=== PATIENT | female | born 1990 | race Caucasian/White ===

== ENCOUNTER 2022-07-18 09:50 | Outpatient (CLI) | payer BC, SELFPAY | END 2022-07-18 09:51 | disposition home or self-care (01) | PROVIDERS: PCP Physician Assistant; Visit Provider Nurse Practitioner Family | DX: I10 Essential (primary) hypertension (principal); Z13.6 Encounter for screening for cardiovascular disorders | CPT/HCPCS: 80053; 80061 ==

== ENCOUNTER 2023-08-07 18:13 | Outpatient (CLI) | payer BC, SELFPAY ==
--- OUTSIDE RECORDS SUMMARY | 2023-08-07 08:46 | XMS_ITS | Clinical Summary ---
Author Organization [facility] Address [address] [place] [address] Care Team Providers Care Leadership Intern Name Role Phone Unavailable Primary Care Provider Unavailabl e Source Comments Patient records contain information from all sites at [facility]. For routine questions regarding patient records, call [phone] during business hours, M-F 8:00 AM - 5:00 PM Central Time. Record requests for emergency care only can be directed to [phone] at any time.[facility] Allergies No known active allergies Medications Medication Sig Dispensed Refills Start Date End Date Status hydroCHLOROthiazide (MICROZIDE) 12.5 mg capsule Take 12.5 mg by mouth every morning. 01/23/2023 Active diphenhydramine-lidoca ine 2 %-antacid (mw)Indications:Pharyn gitis Acute Take 5-10 mL by mouth every 6 (six) hours as needed (mouth pain). Hold in mouth/gargle for a few minutes then spit out. 240 mL 1 02/01/2023 Active Active Problems No known active problems Social History Tobacco Use Types Packs/Day Years Used Date Smoking Tobacco: Never Assessed Nutrition Answer Date Recorded Nutrition: EVOO Fat Source Unknown 02/01 Nutrition: Servings of Fruits/Vegetables per Day Not on file 02/01/2023 Dental Answer Date Recorded Dental: Regular Dentist Unknown 02/02/20 23 Sex and Gender Information Value Date Recorded Sex Assigned at Not on file Gender Identity Not on file Sexual Orientation Not on file Last Filed Vital Signs Vital Sign Reading Time Taken Comments Blood Pressure 129/85 02/01/2023 8:35 AM CHEMIST PHYSICAL Pulse 94 02/01/2023 8:35 AM CHEMIST PHYSICAL Temperature 36.7 ??C (98.1 ??F) 02/01/2023 8:35 AM CS T Respiratory Rate - - Oxygen Saturation 98% 02/01/2023 8:35 AM CHEMIST PHYSICAL Inhaled Oxygen Concentration - - Weight 93.7 kg (206 lb 8 oz) 02/01/2023 8:35 AM CHEMIST PHYSICAL Height - - Body Mass Index - - Plan of Treatment Health Maintenance Due Date Last Done Comments Cervical Cancer Screening 1989 HIV Screening 1989 Hepatitis C Screening 1989 Hepatitis B Vaccines (1 of 3 - 19+ 3-dose series) 2008 COVID-19 Vaccine ( - 2022-2 4 season) 2022 Influenza Vaccine (#1) 2022 Depression Screening (Annual PHQ-2) 02/17/2023 DTaP,Tdap,and Td Vaccines (2 - Td or Tdap) 07/16/2032 07/16/2022 HPV Vaccines Aged Out No longer eligi ble based on patient's age to complete this topic Pneumococcal vaccine (0-64 years) Aged Out No longer eligible based on patient's age to complete this topic [address] [place] [address]
--- OUTSIDE RECORDS SUMMARY | 2023-08-07 08:46 | XMS_ITS | Referral Summary ---
Author Organization [facility] Address [address] [place] [address] Care Team Providers Care Dye House Hand Name Role Phone Unavailable Primary Care Provider Unavailabl e Source Comments Patient records contain information from all sites at [facility]. For routine questions regarding patient records, call [phone] during business hours, M-F 8:00 AM - 5:00 PM Central Time. Record requests for emergency care only can be directed to [phone] at any time.[facility] Allergies No known active allergies Medications Medication [...] Comments Blood Pressure 129/85 02/01/2023 8:35 AM TITLE I ASSISTANT Pulse 94 02/01/2023 8:35 AM TITLE I ASSISTANT Temperature 36.7 ??C (98.1 ??F) 02/01/2023 8:35 AM CS T Respiratory Rate - - Oxygen Saturation 98% 02/01/2023 8:35 AM TITLE I ASSISTANT Inhaled Oxygen Concentration - - Weight 93.7 kg (206 lb 8 oz) 02/01/2023 8:35 AM TITLE I ASSISTANT Height - - Body Mass Index - - Plan of Treatment Not on file [address] [place] [address]
--- OUTSIDE RECORDS SUMMARY | 2023-08-07 08:47 | XMS_ITS | Encounter Summary ---
Author Organization [facility] Address [address] [facility] [place] [address] Care Team Providers Care Body Service Team Member Name Role Phone No Ref-Primary, Physician Primary Care Provider Flower Duke MD Unavailable [phone] Flower Duke MD Unavailable [phone] Encounter Details Date Type Department Care Team (Late st Contact Info) Description 10/28/2016 Medical Correspondence [facility] [id number] [place] [id number] Mary Funk Ra, PAPER LATCHER SENIOR GENETIC COUNSELOR [address] [place] [address] Social History Tobacco Use Types Packs/Day Years Used Date Smoking Tobacco: Some Days Cigarettes Comments:1/2 to 1 ppd Alcohol Use Standard Drinks/Week Comments Yes 0 (1 standard drink = 0.6 oz pure alcohol) Once a week drinks more when goes out Sex and Gender Information Value Date Recorded Sex Assigned at Not on file Gender Identity Not on file Sexual Orientation Not on file documented as of this encounter Plan of Treatment Not on file documented as of this encounter Visit Diagnoses Not on filedocumented in this encounter Care Teams Body Service Team Member Relationship Specialty Start Date End Date No Ref-Primary, Physician PCP - General 01/24/13 Flower Duke MD [address] [facility] [address] [place] [address] PCP - Assigned PCP 08/11/16 04/21/18 Flower Duke MD [address] [facility] [address] [place], [place] [id number] Assigned PCP 08/11/16 08/07/19 documented as of this encounter
--- OUTSIDE RECORDS SUMMARY | 2023-08-07 08:47 | XMS_ITS | Clinical Summary ---
Author Organization [facility] Address [address] [facility] [place] [address] Care Team Providers Care Shopfitter Name Role Phone No Ref-Primary, Physician Primary Care Provider Allergies No known active allergies Medications Medication Sig Dispensed Refills Start Date End Date Status meclizine (ANTIVERT) 12.5 MG tablet Take 1 tablet (12.5 mg) by mouth 4 times daily as needed for dizziness (1-2 tablets) 30 tablet 0 07/27/2015 Active Additional Information Patient not taking.Reported on 04/09/2017 nortriptyline (PAMELOR) 10 MG capsule 2 09/01/2016 Active SUMAtriptan (IMITREX) 100 MG tablet Take 1 tablet (100 mg) by mouth at onset of headache for migraine May repeat in 2 hours. Max 2 tablets/24 hours. 18 tablet 1 10/28/2016 Active Active Problems Problem Noted Date Diagnosed Date CARDIOVASCULAR SCREENING; LDL GOAL LESS THAN 160 02/14/2014 Family History Medical History Relation Comments Family History Negative Father Hypertension Father Family History Negative Maternal Grandfather Family History Negative Maternal Grandmother Breast Cancer Mother Diabetes Paternal Grandfather Family History Negative Paternal Grandfather Family History Negative Paternal Grandmother Depression Sister Relation Status Comments Brother 1 Alive Brother 2 Alive Father Alive Maternal Grandfather Alive Maternal Grandmother Alive Mother Alive Paternal Grandfather (Age 58) Paternal Grandmother Alive Sister Alive Social History Tobacco Use Types Packs/Day Years Used Date Smoking Tobacco: Some Days Cigarettes Smokeless Tobacco: Never Comments:1/2 to 1 ppd Alcohol Use Standard Drinks/Week Comments Yes 0 (1 standard drink = 0.6 oz pure alcohol) Once a week drinks more when goes out PHQ-2 Answer Date Recorded PHQ-2 Score 0 02/25/2018 Sex and Gender Information Value Date Recorded Sex Assigned at Not on file Gender Identity Not on file Sexual Orientation Not on file Last Filed Vital Signs Vital Sign Reading Time Taken Comments Blood Pressure 135/91 07/04/2018 8:00 AM CDT Pulse 83 07/04/2018 8:00 AM CDT Temperature 36.7 ??C (98 ??F) 07/04/2018 7:05 AM CDT Respiratory Rate 16 07/04/2018 8:27 AM CDT Oxygen Saturation 96% 07/04/2018 8:00 AM CDT Inhaled Oxygen Concentration - - Weight 87.8 kg (193 lb 9 oz) 07/04/2018 7:05 AM CDT Height 160 cm (5' 3) 04/09/2017 7:39 PM PROPERTY APPRAISER Body Mass Index 34.29 04/09/2017 7:39 PM PROPERTY APPRAISER Plan of Treatment Not on file Care Teams Shopfitter Relationship Specialty Start Date End Date No Ref-Primary, Physician PCP - General 01/24/13
--- OUTSIDE RECORDS SUMMARY | 2023-08-07 08:47 | XMS_ITS | Referral Summary ---
Author Organization [facility] Address [address] [facility] [place] [address] Care Team Providers Care Associate Designer Name Role Phone No Ref-Primary, Physician Primary [...] SCREENING; LDL GOAL LESS THAN 160 02/14/2014 Social History Tobacco Use Types Packs/Day Years [...] 160 cm (5' 3) 04/09/2017 7:39 PM DECK BUILDER Body Mass Index 34.29 04/09/2017 7:39 PM DECK BUILDER Plan of Treatment Not on file Care Teams Associate Designer Relationship Specialty Start Date End Date No Ref-Primary, Physician PCP - General 01/24/13
--- OUTSIDE RECORDS SUMMARY | 2023-08-07 08:47 | XMS_ITS ---
Author Organization [facility] Address [address] [place] [address] Care Team Providers Care Psychology Physician Name Role Phone Unavailable Unavailable Unavailable Surgery Details Not on file Complications Check Surgery Details section. Procedure Estimated Blood Loss Check Surgery Details section. Procedure Findings Check Surgery Details section. Procedure Specimens Taken Check Surgery Details section.
== END 2023-08-07 18:14 | disposition home or self-care (01) ==
PROVIDERS: PCP Registered Nurse; Visit Provider Registered Nurse
DX: Z00.00 Encounter for general adult medical examination without abnormal findings (principal); E78.00 Pure hypercholesterolemia, unspecified; I10 Essential (primary) hypertension
CPT/HCPCS: 80061

== ENCOUNTER 2024-05-31 15:12 | Emergency (ER) | payer BC, SELFPAY ==
--- OUTSIDE RECORDS SUMMARY | 2024-05-31 15:15 | XMS_ITS | Clinical Summary ---
Author Organization [facility] Address [address] [place] [address] Care Team Providers Care Economic Historian Name Role Phone Unavailable Primary Care Provider Unavailabl e Source Comments Patient records contain information from all sites at [facility]. For routine questions regarding patient records, call [phone] during business hours, M-F 8:00 AM - 5:00 PM Central Time. Record requests for emergency care only can be directed to [phone] at any time.[facility] Allergies No known active allergies Medications hydroCHLOROthia zide (MICROZIDE) 12.5 mg capsule Take 12.5 mg by mouth every morning. 01/23/2023 Active diphenhydramine -lidocaine 2 %-antacid (mw)Indications :Pharyngitis Acute Take 5-10 mL by mouth every 6 (six) hours as needed (mouth pain). Hold in mouth/gargle for a few minutes then spit out. 240 mL 1 02/01/2023 Active Active Problems No known active problems Social History Tobacco Use Types Packs/Day Years Used Date Smoking Tobacco: Never Assessed Dental Answer Date Recorded Dental: Regular Dentist Unknown 02/02/20 23 Comments Unknown Sex and Gender Information Value Date Recorded Sex Assigned at Not on file Legal Sex Female 8:04 AM ROOF PROMENADE TILE SETTER Gender Identity Not on file Sexual Orientation Not on file Last Filed Vital Signs Vital Sign Reading Time Taken Comments Blood Pressure 129/85 02/01/2023 8:35 AM ROOF PROMENADE TILE SETTER Pulse 94 02/01/2023 8:35 AM ROOF PROMENADE TILE SETTER Temperature 36.7 C (98.1 F) 02/01/2023 8:35 AM ROOF PROMENADE TILE SETTER Respiratory Rate - - Oxygen Saturation 98% 02/01/2023 8:35 AM ROOF PROMENADE TILE SETTER Inhaled Oxygen Concentration - - Weight 93.7 kg (206 lb 8 oz) 02/01/2023 8:35 AM ROOF PROMENADE TILE SETTER Height - - Body Mass Index - - Plan of Treatment Health Maintenance Due Date Last Done Comments Cervical/Vaginal Cancer Screening 1989 HIV Screening 1989 Hepatitis C Screening 1989 Lipid (Cholesterol) Screening 1989 Hepatitis B Vaccines (1 of 3 - 19+ 3-dose series) 2008 COVID-19 Vaccine ( - 2023-2 5 season) 2023 Influenza Vaccine (#1) 2023 Depression Screening (Annual PHQ-2) 02/18/2024 DTaP,Tdap,and Td Vaccines (2 - Td or Tdap) 07/16/2032 07/16/2022 HPV Vaccines Aged Out No longer eligi ble based on patient's age to complete this topic IPV Vaccines Aged Out No longer eligi ble based on patient's age to complete this topic Pneumococcal vaccine (0-49 years) Aged Out No longer eligible based on patient's age to complete this topic Insurance [address] [place] [address] [facility]
[2024-05-31 15:31] VITALS: BP 155/108; PULSE 78; RESP 18; TEMP 37.6; O2SAT 97; BMI 32.8
--- NOTE | 2024-05-31 16:11 | ED.HA ---
HPI - Headache General Date Seen: 05/31/24 Chief Complaint: Headache/Migraine Stated Complaint: Migrane Time Seen by Provider: 05/31/24 16:05 History of Present Illness HPI Narrative: Pleasant 34-year-old female with a history of migraine headaches, anxiety, melanoma, hypertension, presenting to the ER today for headache. She is here with her who is supportively at her side. She reports that she had headache that actually started Friday morning and then got worse Friday afternoon so she had to go home early from work. That headache was not abrupt in onset or maximal in intensity at outside but did steadily worsened throughout the afternoon. She tried all of her normal interventions for headache including drinking Mountain Dew, and juhx-toh-yugddwy pain medications. It felt little bit better on Friday. She was awoken from sleep on Friday at about morning with severe bilateral tinnitus that lasted about 30 seconds, ?like a train was still in my head) and with that onset of a severe thunderclap type headache that also lasted about 30 seconds. Both of those symptoms came and went and she was essentially back to normal yesterday on Friday. Today her headache is come back again. Yesterday the headache was mostly in the right temporal region, today more it is in the left. Is not spreading across both sides. It is associated with photophobia. She has no new blurry vision or double vision. However she notes that she does have chronic trouble with her eye striking apparently that causes double vision when she is driving in her car. She has had that visual problem for years and has been doing ?I therapy? for. She does not have a fever. Mild pain from her head down into her neck but no neck stiffness. No recent head injury. No known carbon monoxide exposure. She is here with her they live in the same house and he has no symptoms similar to hers. No rash. No sore throat. No earache. Related Data Previous Rx's ?Medication ?Instructions ?Recorded hydrochlorothiazide 12.5 mg capsule 12.5 mg PO QAM #90 caps 08/07/23 Allergies Allergy/AdvReac Type Severity Reaction Status Date / Time No Known Allergies Allergy Unknown Unknown Verified 05/31/24 17:38 [facility] Surgical History H/O local excision of skin lesion ?Z98.890 - Other specified postprocedural states (ICD-10) Family History Mother Breast cancer Father High blood pressure Sister FH: mental illness Social History Narrative: Works in [employer]. Completed college. What is your current living situation?: I presently have a place to live Problems where you live: declined to answer In the past 12 months, utilities in danger of being shut off: no In past 12 months, lack of transportation kept you from medical appts, meetings, work, or getting things needed for daily living: no In the past 12 mos, have been you worried that your food would run out before you had money to buy more?: never true In the past 12 mos, the food you bought just didn't last and you didn't have money to buy more?: never true Smoking Status: Current every day smoker What tobacco products do you use: cigarettes How often do you have a drink containing alcohol: monthly or less How many standard drinks containing alcohol do you have on a typical day: 1 or 2 AUDIT-C Alcohol total score: 1 Non-prescribed substance use: denies use How often does anyone, including family, friends and others, physically hurt you: never How often does anyone, including family, friends and others, insult or talk down to you: never How often does anyone, including family, friends and others, threaten you with harm: never How often does anyone, including family, friends and others, scream or curse at you: never Exam Const: Vital Signs, click to edit/add: Vital Signs - 24 hr 05/31/24 15:31 05/31/24 17:36 Temperature 99.7 F H Pulse Rate [Right Pulse Oximeter] 78 77 Respiratory Rate 18 16 Blood Pressure [Ri ght Forearm] 155/108 H 118/80 Pulse Oximetry 97 97 Oxygen Delivery Me thod Room Air Room Air Course Course ED Course: Recheck-the 7 broach. Headache is much improved down from a 12/10 down to a 3-4/10. She is now more comfortable appearing and able to complete a physical exam. Physical exam Constitutional: Appears well-developed and well-nourished. Alert. Conversant. Non toxic. HENT: Head: Atraumatic. Nose: Nose normal. Mouth/Throat: Oral mucosa is clear and moist. no trismus. Pharynx normal. Tonsils symmetric. No tonsillar enlargement, erythema, or exudate. Eyes: Conjunctivae normal. EOM normal. Pupils equal, round, and reactive to light. No scleral icterus. Neck: Normal range of motion. Neck supple. No tracheal deviation present. Cardiovascular: Normal rate, regular rhythm. No gallop. No friction rub. No murmur heard. Pulmonary/Chest: Effort normal. No stridor. No respiratory distress. No wheezes. No rales. No rhonchi . Musculoskeletal: RUE: Normal range of motion. No tenderness. No deformity LUE: Normal range of motion. No tenderness. No deformity RLE: Normal range of motion. No edema. No tenderness. No deformity LLE: Normal range of motion. No edema. No tenderness. No deformity Lymph: No cervical adenopathy. Neurological: Mental status normal. Attention normal. Alert and oriented x3. GCS 15. Memory normal. Speech fluent. Cognition normal. Cranial Nerves intact II-XII except I did not formally test gag or visual acuity. EOMI. Palate elevates symmetrically and tongue protrudes in the midline. Strength: 5/5 trapezius on the right and left 5/5 deltoid on the right and left 5/5 biceps on the right and left 5/5 triceps on the right and left 5/5 periodicals library assistant on the right and left 5/5 thumb opposition on the right and left 5/5 finger abduction on the right and left 5/5 hip flexors (L3) on the right and left 5/5 quadriceps (L4) on the right and left 5/5 tibialis anterior on the right and left 5/5 EHL (L5) on the right and left 5/5 gastrocnemius (S1) on the right and left 5/5 hamstring on the right and left Sensation intact to light touch in both upper extremities (C4-T1) Sensation intact to light touch in Both lower extremities (L4-S1). Finger to nose and coordination normal. Gait normal. Skin: Skin is warm and dry. No rash noted. No pallor. Normal capillary refill. Psychiatric: Normal mood. Normal affect. Polite Vital Signs Vital signs: Initial Vital Signs Temperature 99.7 F H 05/31/24 15:31 Temperature Source Temporal Artery Scan 05/31/24 15:31 Pulse Rate 78 05/31/24 15:31 Pulse Rhythm Regular 05/31/24 15:31 Pulse Strength 3+ Normal 05/31/24 15:31 Respiratory Rate 18 05/31/24 15:31 Blood Pressure 155/108 H 05/31/24 15:31 Blood Pressure Mean 123 H 05/31/24 15:31 Blood Pressure Position Sitting 05/31/24 15:31 Pulse Oximetry 97 05/31/24 15:31 Oxygen Delivery Method Room Air 05/31/24 15:31 Vital Signs Temperature 99.7 F H 05/31/24 15:31 Pulse Rate 78 05/31/24 15:31 Respiratory Rate 18 05/31/24 15:31 Blood Pressure 155/108 H 05/31/24 15:31 Pulse Oximetry 97 05/31/24 15:31 Oxygen Delivery Method Room Air 05/31/24 15:31 Temperature 99.7 F H 05/31/24 15:31 Pulse Rate 77 05/31/24 17:36 Respiratory Rate 16 05/31/24 17:36 Blood Pressure 118/80 05/31/24 17:36 Pulse Oximetry 97 05/31/24 17:36 Oxygen Delivery Method Room Air 05/31/24 17:36 Medications Administered Medications: Discontinued Medications Generic Name Dose Route Start Last Admin Trade Name Freq PRN Reason Stop Dose Admin Dexamethasone 10 mg 05/31/24 16:21 05/31/24 17:20 Dexamethasone 10 Mg/Ml Inj PO 05/31/24 16:22 Not Given ONCE ONE Dexamethasone 10 mg 05/31/24 17:09 05/31/24 17:25 Dexamethasone 4 Mg/Ml Vial IVP 05/31/24 17:10 10 mg ONCE ONE Administration Diphenhydramine HCl 12.5 mg 05/31/24 16:21 05/31/24 16:57 Diphenhydramine 50 Mg/Ml Inj IVP 05/31/24 16:22 12.5 mg ONCE ONE Administration Sodium Chloride 1,000 mls @ 1,000 mls/hr 05/31/24 16:30 05/31/24 16:53 0.9 % Sodium Chloride 1000 Ml IV 05/31/24 17:29 1,000 mls/hr .Q1H OPAL Administration Ketorolac Tromethamine 15 mg 05/31/24 16:21 05/31/24 16:53 Ketorolac 15 Mg/Ml Inj IVP 05/31/24 16:22 15 mg ONCE ONE Administration Metoclopramide HCl 10 mg 05/31/24 16:21 05/31/24 16:55 Metoclopramide Hcl 5 Mg/Ml Inj IVP 05/31/24 16:22 10 mg ONCE ONE Administration MDM - Headache MDM Narrative Medical decision making narrative: Ths patient presents with a headache. A broad differential diagnosis was considered including tension, migraine, analgesic rebound, occipital neuralgia, etc. Other less common but serious causes considered included meningitis, encephalitis, subarachnoid bleed, stroke, tumor, etc. she does have a history of headaches in the past but has never had headache as severe as the headache she has today. Also the location of her headache is been different, it was more right frontal on Friday, left frontal yesterday and now bifrontal today. She also had an episode yesterday morning at about 530 on Friday where she had an abrupt onset severe headache associated with severe bilateral tenderness. With a new pattern of headache and an abrupt onset CT a headache yesterday a.m. concerned about possibility of subarachnoid hemorrhage or other vascular problem. I have ordered a CT scan of the patient's head and CT angiogram of her head neck to evaluate. See test is negative. While she has been here in the ER awaiting CT she has received combination of Toradol, Benadryl, Reglan, IV saline or. Headache is improved markedly from a ?12/10? down to a 3-4/10. She is feeling much better. Still mildly photophobic but overall improving. Discussed with my partner, Dr. Goodwin at 5:40 p.m.. Patient has just gone over for CT imaging and will be obtaining her pictures momentarily.. He will follow up on her CT imaging results. If head CT and CT angiogram of her head neck are both normal I think she would be safe for discharge home with headache precautions and outpatient follow-up. If there is an abnormality on the patient's imaging or if her clinical status changes, Dr. Goodwin well disposition appropriately. Lab Data Labs: Lab Results 05/31/24 Range/Units 16:45 HCG, Qual Negative (Negative) Discharge Plan Discharge Clinical Impression: Headache Patient Disposition: Home, Self-Care Condition: Stable Instructions: Acute Headache (DC) Additional Instructions: As we discussed, please come back to the ER right away if you have worsening headache, worsening trouble with her vision, confusion, seizures, or other problems. Even if your getting better, please recheck with your regular doctor within 7-10 days. Prescriptions: No Action hydrochlorothiazide 12.5 mg capsule 12.5 mg PO QAM Qty: 90 3RF Follow Up/Referrals: Christy Abreu LATHE SPOTTER [Primary Care Provider] - Stand Alone Forms: [employer] Info Instructions
--- NOTE | 2024-05-31 16:21 | CRLHL7_ITS ---
For Patients: As a result of the Century Cures Act, medical imaging exams and procedure reports are released immediately into your electronic medical record. You may view this report before your referring provider. If you have questions, please contact your health care provider. Indication: Severe headache. Technique: Noncontrast CT images of the brain. Comparison: None. Findings: The ventricles and sulci are within normal limits for patient age. No mass effect or midline shift. Ponce-white differentiation is maintained. No acute intracranial hemorrhage or pathologic extra-axial fluid collection. Mildly expanded, partially empty configuration of the sella may represent an anatomic variant. Globes are symmetric. Calvarium is intact. Small left sphenoid sinus retention cyst. Mastoid air cells are clear. Impression: 1. No acute intracranial hemorrhage or mass effect. 2. Mildly expanded, partially empty configuration of the sella may represent an anatomic variant, though raises the possibility of idiopathic intracranial hypertension in an appropriate clinical setting. Please note that all CT scans at this facility use dose modulation, iterative reconstruction, and/or weight-based dosing when appropriate to reduce radiation dose to as low as reasonably achievable. Dictated by William Hall MD @ 05/31/2024 6:09:43 PM (Electronically Signed)
--- NOTE | 2024-05-31 16:22 | CRLHL7_ITS ---
For Patients: As a result of the Century Cures Act, medical imaging exams and procedure reports are released immediately into your electronic medical record. You may view this report before your referring provider. If you have questions, please contact your health care provider. CLINICAL HISTORY: Severe thunderclap headache and sore neck. TECHNIQUE: Standard helical CT image acquisition through the head following the administration of intravenous contrast was performed. 3D and MIP reconstructions were performed at a separate workstation and permanently archived. COMPARISON: None available. FINDINGS: No intracranial proximal large vessel occlusion or flow-limiting luminal stenosis. No evidence of cerebral aneurysm. No findings to suggest an arterial-venous shunting lesion. There are severe stenoses of the bilateral distal transverse sinuses. IMPRESSION: 1. No intracranial proximal large vessel occlusion, flow-limiting luminal stenosis, or cerebral aneurysm. 2. 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 Findings are highly suggestive of underlying idiopathic intracranial hypertension. For consultation with our Neurointerventional service at [facility] regarding this patient`s presumed idiopathic intracranial hypertension and transverse sinus stenoses, please call [phone] to make arrangements with our coordinator.: For consultation with our Neurointerventional service at [facility] regarding this patient`s presumed idiopathic intracranial hypertension and transverse sinus stenoses, please call [phone] to make arrangements with our coordinator.: Please note that all CT scans at this facility use dose modulation, iterative reconstruction, and/or weight-based dosing when appropriate to reduce radiation dose to as low as reasonably achievable. Dictated by Dereck Soliman MD @ 06/01/2024 2:20:24 PM (Electronically Signed)
--- NOTE | 2024-05-31 16:22 | CRLHL7_ITS ---
For Patients: As a result of the Century Cures Act, medical imaging exams and procedure reports are released immediately into your electronic medical record. You may view this report before your referring provider. If you have questions, please contact your health care provider. CLINICAL HISTORY: Sudden onset severe headache and sore neck. TECHNIQUE: Standard helical CT image acquisition through the neck was performed after intravenous contrast bolus enhancement. 3D and MIP reconstructions were performed at a separate workstation and permanently archived. COMPARISON: None available. FINDINGS: The origins of the great vessels from the aortic arch are patent. The common carotid arteries are patent. No significant luminal stenoses of the proximal ICAs by NASCET criteria. The more distal cervical segments of the ICAs are patent. The origins and cervical segments of the vertebral arteries are patent. There are approximately 10mm heterogeneously hypodense nodules within both the right and left lobes of the thyroid gland. IMPRESSION: 1. Patent cervical arterial vasculature without hemodynamically significant luminal stenosis. 2. Approximately 10mm heterogeneously hypodense nodules within both the right and left lobes of the thyroid gland. Further assessment with thyroid ultrasound is recommended on a nonurgent basis. Please note that all CT scans at this facility use dose modulation, iterative reconstruction, and/or weight-based dosing when appropriate to reduce radiation dose to as low as reasonably achievable. Dictated by Dereck Soliman MD @ 06/01/2024 2:16:41 PM (Electronically Signed)
--- OUTSIDE RECORDS SUMMARY | 2024-05-31 16:37 | XMS_ITS | Clinical Summary ---
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 For routine questions regarding patient records, call [phone] during business hours, M-F 8:00 AM - 5:00 PM Central Time. Record requests for emergency care only can be directed to [phone] at any time.[facility] Allergies No known active allergies Medications hydroCHLOROthia [...] on file Legal Sex Female 8:04 AM NUDE MODEL Gender Identity Not on file Sexual Orientation Not on file Last Filed Vital Signs Vital Sign Reading Time Taken Comments Blood Pressure 129/85 02/01/2023 8:35 AM NUDE MODEL Pulse 94 02/01/2023 8:35 AM NUDE MODEL Temperature 36.7 C (98.1 F) 02/01/2023 8:35 AM NUDE MODEL Respiratory Rate - - Oxygen Saturation 98% 02/01/2023 8:35 AM NUDE MODEL Inhaled Oxygen Concentration - - Weight 93.7 kg (206 lb 8 oz) 02/01/2023 8:35 AM NUDE MODEL Height - - Body Mass Index - [...] topic Insurance [address] [place] [id number] [facility]
[2024-05-31] MEDS: 0.9 % SODIUM CHLORIDE 1000 ml 1,000 ML IV (16:53)
[2024-05-31] MEDS: KETOROLAC 15 MG/ML inj IVP (16:53)
[2024-05-31] MEDS: METOCLOPRAMIDE HCL 5 MG/ML INJ 10 MG IVP (16:55)
[2024-05-31] MEDS: diphenhydrAMINE 50 MG/ML inj 12.5 MG IVP (16:57)
[2024-05-31] MEDS: dexAMETHasone 4 MG/ML VIAL 10 MG IVP (17:25)
[2024-05-31 17:36] VITALS: BP 118/80; PULSE 77; RESP 16; O2SAT 97
[2024-05-31 17:36] LABS: HCG Qualitative Serum* Negative (Negative)
[2024-05-31 18:43] VITALS: TEMP 36.1
== END 2024-05-31 18:42 | disposition home or self-care (01) ==
PROVIDERS: Emergency Medicine; Emergency Provider Student in an Organized Health Care Education/Training Program; PCP Registered Nurse
DX: R51.9 Headache, unspecified (principal)
CPT/HCPCS: 36415; 70450; 70496; 70498; 84703; 96361; 96374; 96375; 99283; 99284; 99285; J1100; J1200; J1885; J2765; J7030; Q9967

== ENCOUNTER 2024-06-03 09:28 | Outpatient (CLI) | payer BC, SELFPAY | END 2024-06-03 09:29 | disposition home or self-care (01) | LOC: NFLDREF 09:31 | PROVIDERS: PCP Registered Nurse; Visit Provider Registered Nurse | DX: E04.1 Nontoxic single thyroid nodule (principal) | CPT/HCPCS: 84443 ==

== ENCOUNTER 2024-08-02 07:18 | Outpatient (CLI) | payer BC, SELFPAY ==
--- NOTE | 2024-08-02 07:15 | CRLHL7_ITS ---
For Patients: As a result of the Cures Act, medical imaging exams and procedure reports are released immediately into your electronic medical record. You may view this report before your referring provider. If you have questions, please contact your health care provider. INDICATION: Bilateral thyroid nodules visualized on recent CT. COMPARISON: CT 05/31/2024 TECHNIQUE: Ponce scale and color Doppler images were acquired of the thyroid gland. FINDINGS: Hypoechoic solid nodule left thyroid lobe measures 1.45 x 0.9 x 1.1 cm, TR 4. Isthmus nodule measures 9 x 4 x 7 millimeters, TR 4. Isthmus measures 3.7 millimeters. Solid nodule lower pole right thyroid lobe measures 1.6 x 1.1 x 1.2 cm. Punctate microcalcifications also appear to be present, TR 5. The right lobe measures 5.1 x 1.4 x 1.6 cm and the left lobe measures 3.9 x 1.2 x 1.1 cm in size. The color Doppler images demonstrate normal vascularity. There is no evidence of cervical lymphadenopathy or parathyroid mass. IMPRESSION: 1.6 cm TR 5 nodule lower pole right thyroid lobe. FNA recommended. Left-sided nodule should be followed up in 1 year. Dictated by Ryan Bower MD @ 08/02/2024 10:38:12 AM (Electronically Signed)
== END 2024-08-02 07:19 | disposition home or self-care (01) ==
LOC: US 07:19
PROVIDERS: PCP Registered Nurse; Visit Provider Registered Nurse
DX: E04.1 Nontoxic single thyroid nodule (principal)
CPT/HCPCS: 76536

== ENCOUNTER 2024-09-08 11:44 | Outpatient (CLI) | payer BC, SELFPAY ==
--- NOTE | 2024-09-08 12:00 | CRLHL7_ITS ---
For Patients: As a result of the Century Cures Act, medical imaging exams and procedure reports are released immediately into your electronic medical record. You may view this report before your referring provider. If you have questions, please contact your health care provider. PROCEDURE PERFORMED: Right thyroid FNA for thyroid nodule. INDICATION: Right thyroid nodule. FINDINGS: Right thyroid nodule recommendations for ultrasound-guided FNA PROCEDURE: The risks and benefits of the procedure were explained to the patient and questions were answered. Consent was obtained. The skin was prepped in the usual sterile fashion. Under ultrasound guidance, 6 passes of the mass were performed with 25-gauge needles. The specimens were collected and sent to the lab for further analysis. The patient tolerated the procedure well without complications. Wound care was discussed with the patient and the patient was instructed to watch for signs of bleeding and infection after discharge. The patient will call a primary care physician if any problems develop. POST-PROCEDURE DIAGNOSIS: Status post right thyroid FNA for thyroid nodule. MEDICATIONS GIVEN: Lidocaine for local anesthesia. SPECIMEN(S): Six specimens collected and sent to lab for further analysis. COMPLICATIONS: No complications noted. DRAINS: None. ESTIMATED BLOOD LOSS: Less than 10 cc. PHYSICIAN(S) AND ASSISTANTS (if any): TAWNY Lozano Please call with questions. TAWNY Lozano ADDITIONAL COMMENTS: Ultrasound imaging was utilized following FNA procedure shows no signs of extravasation, hematoma, active bleeding. [facility] Protocol A. Pre-procedure verification complete: Yes 1-relevant information / documentation available, reviewed and properly matched to the patient; 2-consent accurate and complete, 3-equipment and supplies available. B. Site marking complete: Yes Site marked if not in continuous attendance with patient. C. TIME OUT completed: Yes Time Out was conducted just prior to starting procedure to verify the eight required elements: 1-patient identity, 2-consent accurate and complete, 3-position, 4-correct side/site marked (if applicable), 5-procedure, 6-relevant images / results properly labeled and displayed (if applicable), 7-antibiotics / irrigation fluids (if applicable), 8-safety precautions. Dictated by Deep Kelley MD @ 09/09/2024 8:11:28 AM (Electronically Signed)
== END 2024-09-08 11:45 | disposition home or self-care (01) ==
LOC: US 11:44
PROVIDERS: PCP Registered Nurse; Visit Provider Registered Nurse
DX: E04.1 Nontoxic single thyroid nodule (principal)
CPT/HCPCS: 10005; 76942; 88173